=== PATIENT | male | born 1970 | race Two or more races ===

== ENCOUNTER 2025-03-07 19:45 | Emergency (ER) | payer MEDICAID, SELFPAY ==
--- NOTE | 2025-03-07 19:48 | PD.EDADULT ---
ED General RME/HPI General Chief complaint: General Adult/Misc Complain Stated complaint: DIABETES COMPLICATION Time Seen by Provider: 03/07/25 19:56 Arrival date/time: 03/07/25 19:45 RME / HPI RME / HPI narrative: Dr. Cotton?s Main ED Evaluation: 54yo male with a history of DM, HTN BIBA from home presents to the ED for a chief complaint of high blood sugar. Per EMS, they were summoned on scene due to the patient's blood sugar reading as high . Patient states he checks his blood sugar every 2 days. He endorses he has not been taking his metformin for the last 5 days due to drinking alcohol. Patient denies any N/V, dysuria, frequency, sweating, cough, fever, chills or any other associated symptoms. No known allergies. Related Data Previous Rx's ?Medication ?Instructions ?Recorded pantoprazole 40 mg tablet,delayed 40 mg PO QDAY #20 tabs 02/18/24 release (Protonix) Allergies Allergy/AdvReac Type Severity Reaction Status Date / Time No Known Allergies Allergy Verified 08/28/21 03:00 Review of Systems Review of Systems Systems Reviewed: All systems reviewed, normal except as documented ED Exam Narrative Physical exam: GENERAL APPEARANCE: alert and oriented x 4, well-developed, well-nourished, no acute distress VITALS: All vitals were reviewed and the pulse ox is 95% on room air, which is normal according to my interpretation. HEENT: Normocephalic, atraumatic; pupils equal, round, reactive to light; EOMI; mucous membranes pink, moist; oropharynx clear NECK: Supple LUNGS: CTABL; no wheezes, no rales, no rhonchi HEART: Tachycardic, regular rhythm; normal S1, S2; no murmurs ABDOMEN: non distended; normal BS; soft, no tenderness, no guarding, no rebound; no masses, no organomegaly, no hernia BACK: no CVA tenderness EXTREMITIES: atraumatic; no edema NEUROLOGIC: awake; alert and oriented x4; cranial nerves II-XII grossly intact; no focal sensory or motor deficits PSYCHIATRIC: appropriate mood and affect SKIN: warm, dry, normal color; no rashes Course Course Course Narrative: CXR is ordered for determining the etiology of tachycardia. Quality Measures none Orders Category Date Time Status Bedside Blood Glucose NOW Care 03/07/25 19:57 Active [place] Q4H START 00 Care 03/07/25 19:57 Active Continuous Pulse Oximetry NOW Care 03/07/25 19:57 Active Insert IV NOW Care 03/07/25 19:57 Active Strict Intake and Output Routine Care 03/07/25 19:57 Ordered XR chest 1V SEPSIS PROTOCOL Stat Exams 03/07/25 19:57 Completed Alcohol, Blood Medical Stat Lab 03/07/25 19:57 Ordered Blood Culture (Lab) Stat Lab 03/07/25 19:57 Ordered CBC Stat Lab 03/07/25 19:57 Ordered Comprehensive Metabolic Panel Stat Lab 03/07/25 19:57 Ordered Ketone [Beta Hydroxybutyrate] Stat Lab 03/07/25 19:57 Ordered Lactate (Lactic Acid) Stat Lab 03/07/25 19:57 Ordered Magnesium Stat Lab 03/07/25 19:57 Ordered Procalcitonin Stat Lab 03/07/25 19:57 Ordered Prothrombin Time with INR Stat Lab 03/07/25 19:57 Ordered Troponin I Stat Lab 03/07/25 19:57 Ordered Urinalysis Stat Lab 03/07/25 19:57 Ordered VBG [Venous Blood Gas] Stat Lab 03/07/25 19:58 Ordered Sodium Chloride 0.9% 1000 ml [Ns] 1,000 ml Med 03/07/25 19:57 Discontinued IV 999 mls/hr Sodium Chloride 0.9% 1000 ml [Ns] 1,000 ml Med 03/07/25 19:58 Discontinued IV 999 mls/hr EKG (RT) Stat RT 03/07/25 19:57 Ordered Oxygen Delivery NOW RT 03/07/25 19:57 Active Vital Signs Vital signs: Vital Signs Temperature 98.6 F 03/07/25 19:51 Pulse Rate 123 H 03/07/25 19:51 Respiratory Rate 18 03/07/25 19:51 Blood Pressure 145/93 H 03/07/25 19:51 Pulse Oximetry (%) 95 03/07/25 19:51 Oxygen Delivery Method Room Air 03/07/25 19:51 Discharge Plan Plan Patient Disposition: Left Against Medical Advice Prescriptions/Referrals Prescriptions/Med Rec: No Action pantoprazole [Protonix] 40 mg tablet,delayed release (DR/EC) 40 mg PO QDAY Qty: 20 0RF Referrals: No Primary/Family,Physician [Primary Care Provider] - In 1 week Problem List Clinical Impression: Hyperglycemia Patient/Caregiver Discharge Instructions Print Language: [place] MDM Patient Acuity Low Acuity (complete MDM as needed) Narrative: Scribe Attestation: 03/07/25 - Albina Jiménez, am scribing for and in the presence of Dr. Cotton. 54yo male with a history of DM, HTN presents to the ED for a chief complaint of high blood sugar. Patient has not taken his metformin in the last 5 days due to binge drinking. Labs and imaging ordered. NS IVF ordered. CXR resulted and is negative for pneumonia. FSBS here is 500. I was informed by the nurse that the patient is wanting to go home. Labs were ordered, but not completed. IVF was ordered, but not given. Patient is alert, awake, and oriented x3. Discussed risks versus benefits regarding the patient leaving without labs being completed. Patient is signing out against medical advice. Clinical Information Provided by: patient and EMS Medical Records reviewed [facility] (Per chart review, patient was seen here on 03/09/24 for chronic alcoholism.) Chronic Illness/Social Conditions which may negatively complicate care or outcome(s)-explain: ETOH/drugs/substance abuse EKG EKG Interpretation(s): EKG done at 2035, sinus tachycardia, rate of 118, left axis deviation, no ectopy, Q waves in lead III and avF, no STEMI, according to my interpretation. Labs Labs: Interpreted by me Imaging Imaging interpretation: Interpreted by me Imaging Interpretation(s): [place] [facility] Report Signed Patient: JES CASTELLANOS. Record#: [id number] Birthdate: 1970 Age/Sex: 54 / M Location: [facility] Attending Dr: Ordering Physician: Inocencio Cotton MD Date of Service: 03/07/25 Procedure(s): XR chest 1V SEPSIS PROTOCOL Accession Number(s): [id number] cc: Fabrizio Gordillo MD; Inocencio Cotton MD~ Examination: AP chest single view Technique one AP portable upright chest single view Exam date and time: March 07, 2025 2017 hrs. Comparison February 18, 2024 Indications: Shortness of breath sepsis today. Findings: Mild prominence cardiac contour Moderate vascular congestion No viji lobar pneumonia Moderate osteopenia Impression: Moderate vascular congestion No viji lobar pneumonia Dictated By: Fabrizio Gordillo MD Signed By: <Electronically signed by Fabrizio Gordillo MD in OV> 03/07/252049 Medication Administration(s) Medication Administration History Discontinued Medications Sodium Chloride (Ns) 1,000 mls @ 999 mls/hr IV .Q1H1M ONE Stop: 03/07/25 20:57 Last Admin: 03/07/25 20:50 Dose: Not Given Documented By: HEAVEN Non-Admin Reason: Patient Refused Sodium Chloride (Ns) 1,000 mls @ 999 mls/hr IV .Q1H1M ONE Stop: 03/07/25 20:58 Last Admin: 03/07/25 20:50 Dose: Not Given Documented By: HEAVEN Non-Admin Reason: Patient Refused NS ordered, but not given. Diagnosis Differential Diagnosis ED Complaint MDM: hyperglycemia without ketosis, DKA, dehydration, electrolyte abnormality
[2025-03-07 19:50] VITALS: BMI 27.7
[2025-03-07 19:51] VITALS: BP 145/93; PULSE 123; RESP 18; TEMP 37; O2SAT 95
--- NOTE | 2025-03-07 19:57 | EKG_ITS ---
[facility] Test Date: 2025-03-07 Pat Name: JES CASTELLANOS Department: Room: - Gender: Male [employer] Work[employer]: : 1970 Requested By: Inocencio Smith Order Number: [id number] Reading MD: Inocencio Smith Measurements Intervals [place] Rate: 118 P: 28 AK: 157 QRS: -20 QRSD: 91 T: -3 QT: 318 QTc: 447 Interpretive Statements SINUS TACHYCARDIA ABNORMAL RHYTHM ECG Compared to ECG 02/18/2024 17:58:25 No significant changes /[id number]/[email or web address]/[id number].pdf
--- NOTE | 2025-03-07 19:57 | XR_ITS ---
Examination: AP chest single view Technique one AP portable upright chest single view Exam date and time: March 07, 2025 2017 hrs. Comparison February 18, 2024 Indications: Shortness of breath sepsis today. Findings: Mild prominence cardiac contour Moderate vascular congestion No viji lobar pneumonia Moderate osteopenia Impression: Moderate vascular congestion No viji lobar pneumonia
[2025-03-07 20:45] VITALS: PULSE 123; RESP 18; O2SAT 93
== END 2025-03-07 20:05 | disposition left against medical advice (07) ==
PROVIDERS: Emergency Provider Emergency Medicine
DX: E11.65 Type 2 diabetes mellitus with hyperglycemia (principal); I10 Essential (primary) hypertension
CPT/HCPCS: 71045; 80053; 80320; 81001; 82010; 82803; 83605; 83735; 84145; 84484; 85025; 85610; 87040; 93005; 99283; G0480